=== PATIENT | male | born 1950 | race Caucasian/White ===

== ENCOUNTER → 2023-12-30 09:00 | Outpatient (REF) | payer BC, SELFPAY | LOC: DHCBC HW 09:00 | PROVIDERS: ATTENDING PHYSICIAN Internal Medicine Cardiovascular Disease; FAMILY PHYSICIAN Family Medicine | DX: E78.00 Pure hypercholesterolemia, unspecified (principal); I35.0 Nonrheumatic aortic (valve) stenosis | CPT/HCPCS: 93306 ==

== ENCOUNTER → 2024-03-11 12:31 | Outpatient (REF) | payer BC, SELFPAY | LOC: RAD 12:31 | PROVIDERS: ATTENDING PHYSICIAN Internal Medicine Hematology & Oncology; FAMILY PHYSICIAN Family Medicine | DX: I82.411 Acute embolism and thrombosis of right femoral vein (principal); C83.03 Small cell B-cell lymphoma, intra-abdominal lymph nodes | CPT/HCPCS: 71260; 74177; Q9967 ==

== ENCOUNTER → 2024-06-10 06:32 | Day surgery (SDC) | payer BC, SELFPAY | LOC: GI 06:32 | PROVIDERS: ATTENDING PHYSICIAN Specialist | DX: D12.2 Benign neoplasm of ascending colon (principal); D12.3 Benign neoplasm of transverse colon; K52.9 Noninfective gastroenteritis and colitis, unspecified; K63.89 Other specified diseases of intestine; K62.5 Hemorrhage of anus and rectum; Z79.01 Long term (current) use of anticoagulants | CPT/HCPCS: 45385; 45380; 88305 ==

== ENCOUNTER 2024-08-05 21:44 | Inpatient (IN) | payer BC, SELFPAY ==
[2024-08-05 17:32] VITALS: BP 119/80
[2024-08-05 18:09] LABS: Hematocrit 38.9 % (39.0-52.0); Mean Corpuscular Hgb 30.4 pg (27.0-31.0); Mean Corpuscular Volume 84.6 fL (80.0-94.0); Mean Platelet Volume 10.4 fL (7.4-10.4); Platelet Count 177 10^3/uL (130-400); Red Cell Dist. Width 13.6 % (11.5-14.5); White Blood Cell Count 18.1 10^3/uL (4.8-10.8)
[2024-08-05 18:10] LABS: ALT (SGPT) 31 U/L (0-50); AST (SGOT) 34 U/L (17-59); Albumin 4.6 g/dl (3.5-5.0); Alkaline Phosphatase 109 U/L (38-126); Blood Urea Nitrogen 49 mg/dl (9-20); Carbon Dioxide 32 mmol/L (22-30); Chloride 99 mmol/L (98-107); Glucose 153 mg/dl (70-99); Potassium 3.7 mmol/L (3.5-5.1); Sodium 141 mmol/L (135-145); Total Bilirubin 1.1 mg/dl (0.2-1.3); Total Protein 7.2 g/dl (6.3-8.2); eGFR 48.25
[2024-08-05 18:17] LABS: % Basophils 0.2 % (0-2); % Eosinophils 0.1 % (0-6); % Immature Granulocytes 0.2 % (0-0.5); % Lymphocytes 66.1 % (20.5-51.1); % Monocytes 11.8 % (1.7-9.3); % Neutrophils 21.6 % (42.2-75.2); Absolute Monocytes 2.1 10^3/uL (0.1-0.6); Absolute Neutrophils 3.9 10^3/uL (1.4-6.5); Nucleated Red Blood Cells % 0.1 % (-)
[2024-08-05 18:32] LABS: Calcium 17.2 mg/dl (8.4-10.2)
[2024-08-05 18:46] VITALS: BP 136/71; BMI 28.3
[2024-08-05 19:11] VITALS: BP 132/95
[2024-08-05] MEDS: NSS 1000 IV ×2 (19:21→19:47)
[2024-08-05] MEDS: ZOFRAN 4 MG IV (19:48)
[2024-08-05] MEDS: MORPHINE SULFATE 4 MG IV (19:48)
[2024-08-05 20:00] VITALS: BP 147/86
[2024-08-05] MEDS: AREDIA 260 MG IV (20:03)
--- NOTE | 2024-08-05 20:30 | ED.GENMED ---
History of Present Illness
General
Chief Complaint: Back Pain
Source: patient and family
Exam Limitations: none
Time Seen by Provider: 08/05/24 18:58
History of Present Illness
History of Present Illness:
73-year-old male who presents with generalized weakness and pains. The patient admits that about 2 weeks ago he injured his back while trying to move furniture in his office. Patient states that he has had back pain in the past but this has
persisted. Patient does have a history of DVT as well as coronary disease. Patient has a history of CLL and SLL. Patient states that is being followed by hematology but no treatment has been necessary. He does admit he has felt like he has been
able to feel some lymph nodes up near his ear.
Past History
Past History
ED Past Medical History: HTN, Hypercholesterolemia and Other (History of back pain, neck pain, tingling of the extremities arthritis, factor V Leiden heterozygote, CLL/SLL)
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
Social History
Personal:
Living: with family
Employment: Employed
Phy Exam
Physical Exam
Physical Exam:
CONSTITUTIONAL Patient alert and oriented to person, place and time. Well-appearing. Vital signs reviewed. Dry mucous membranes
HEAD atraumatic, normocephalic.
EYES eyelids normal to inspection, Extraocular muscles intact, Conjunctiva normal, Sclera normal.
NECK normal range of motion, Trachea midline, no jugular venous distention. Mild anterior and posterior cervical chain lymphadenopathy
RESPIRATORY CHEST No respiratory distress noted, Chest expansion equal, Bilateral breath sounds clear.
CARDIOVASCULAR regular rate and rhythm, Heart sounds normal.
ABDOMEN abdomen nontender, Bowel sounds normal. No distention.
BACK normal inspection, no obvious deformities
UPPER EXTREMITY range of motion normal, Motor strength normal, no cyanosis, no edema.
LOWER EXTREMITY range of motion normal, Motor strength normal, no cyanosis, no edema.
NEURO Speech normal, No focal motor deficits, Dawson coma scale 15, Memory normal, Cranial Nerves intact to screening exam.
SKIN skin warm, dry, and normal in color.
PSYCHIATRIC patient oriented to person place and time, Normal affect.
Course
Orders/Labs/Results
Orders:
Orders
08/05/24 17:48
CMP [Comprehensive Metabolic Panel] Urgent
Complete Blood Count/With Diff Urgent
08/05/24 18:50
EKG [Electrocardiogram (*1)] Urgent
Reason for Study: Other
Other Reason for Exam: hypercalcemia
0.9% Sodium Chloride 1000 ml [Nss] 1,000 ml IV BOLUS
08/05/24 18:51
EKG- Treatment ONCE
08/05/24 19:07
Pamidronate Disodium [Aredia] 30 mg 0.9% Sodium Chloride 250 ml [Nss] 250 ml IV NOW
08/05/24 19:36
Chest/Abd/Pelvis wo Contrast CT [CT Chest/abd/pel Wo Iv Cont] Urgent
Comment:
Reason For Exam: hypercalcemia, weakness, back and R flank pain
08/05/24 19:37
0.9% Sodium Chloride 1000 ml [Nss] 1,000 ml IV BOLUS
Morphine Sulfate 4 mg IV NOW STA
Ondansetron Injectable [Zofran] 4 mg IV NOW STA
08/05/24 20:00
Pamidronate Disodium [Aredia] 30 mg 0.9% Sodium Chloride 250 ml [Nss] 250 ml IV ONCE
Abnormal Lab Results
08/05/24
17:48
WBC 18.1 H 10^3/uL
(4.8-10.8)
RBC 4.60 L 10^6/uL
(4.70-6.10)
Hct 38.9 L %
(39.0-52.0)
Absolute Lymphs (auto) 12.0 H 10^3/uL
(1.2-3.4)
Absolute Monos (auto) 2.1 H 10^3/uL
(0.1-0.6)
Neutrophils % 21.6 L %
(42.2-75.2)
Lymphocytes % 66.1 H %
(20.5-51.1)
Monocytes % 11.8 H %
(1.7-9.3)
Carbon Dioxide 32 H mmol/L
(22-30)
BUN 49 H mg/dl
(9-20)
Creatinine 1.5 H mg/dL
(0.7-1.3)
Glucose 153 H mg/dl
(70-99)
Calcium 17.2 H* mg/dl
(8.4-10.2)
08/05/24 17:48
08/05/24 17:48
Vital Signs
Initial and Last Documented VS:
Initial Vital Signs
Temp Pulse Resp BP Pulse Ox
97.9 F 110 20 119/80 96
08/05/24 17:32 08/05/24 17:32 08/05/24 17:32 08/05/24 17:32 08/05/24 17:32
Last Documented Vital Signs
Temp Pulse Resp BP Pulse Ox
98.5 F 86 16 136/71 99
08/05/24 18:46 08/05/24 18:46 08/05/24 18:46 08/05/24 18:46 08/05/24 18:46
MDM/Problems Addressed
MDM/Problems Addressed:
Hypercalcemia, CLL
*Radiology
Radiology exam reviewed: preliminary read by ED provider (No free air)
*Pulse Oximetry
Patient hypoxic: no
*EKG
Interpreted by ED Provider?: Yes
Interpretation: abnormal
Rate: normal
Rhythm: sinus
[place]: normal axis
QRS Pattern: poor R-wave progression
Ischemia: non-specific ST changes
*Unified Communications Architect Interpretation
Rate: normal
Interpretation: normal
Rhythm: sinus
*Critical Care Note
Total Time (30-74mins, 75-104mins- exclusive of procedures): 30 minutes
Data Reviewed
Review of Other/Old Records Reveals: Labs (Prior labs revealed normal) and Discharge Summary
Prescriptions/Medications Considered But Not Given:
Consider Lasix in addition but for now because he is dry continue IV fluids and pamidronate
Patient Management
Discussion with other providers: Hospitalist
Escalation/DeEscalation of care consider admission/obs:
73-year-old male who presents with weakness and fatigue and found to be hypercalcemic. Will need further workup. Continue IV fluids and pamidronate and admit. Dr. Osman was able to discuss the case with nephrology as well
ED Attending Note
-
Portions of this chart may have been created with voice recognition software.� Occasional wrong word or��sound alike� substitutions may have occurred due to the inherent limitations of voice recognition software.
Discharge Plan
Departure
Patient Disposition: Admit
Date of Disposition: 08/05/24
Time of Disposition: 20:31
Admit to: Med/Surg
Presentation/result/management discussed w/ accepting MD/DO: Hospitalist
Discharge Problem:
Hypercalcemia
Prescriptions:
No Action
nicotine (polacrilex) 2 MG gum
2 mg PO .25-30X DAILY PRN (Reason: smoking cessation)
finasteride [Proscar] 5 MG tablet
5 mg PO DAILY
atorvastatin 80 mg Tablet
80 mg PO DAILY
metoprolol succinate [Toprol XL] 100 mg Tablet Extended Release 24 Hr
100 mg PO HS
amlodipine 2.5 mg Tablet
2.5 mg PO DAILY
valsartan [Diovan] 320 mg Tablet
320 mg PO DAILY
diazepam [Valium] 5 mg Tablet
5 mg PO BIDPRN PRN (Reason: anxiety)
Patient Comments:
08/05/24: last filled on 04/14/24 for 60 tablets over 30 days
Eliquis 5 mg Tablet
5 mg PO BID
acetaminophen [Tylenol Extra Strength] 500 mg Tablet
1,000 mg PO Q8HPRN PRN (Reason: mild pain)
aspirin 81 mg Tablet,Chewable
81 mg PO DAILY
Interventions
Interventions:
*Risk Screen - Suicide Last Done: 08/05/24 18:46
*General Assessment Last Done: 08/05/24 18:46
*Neglect/Abuse Screening Last Done: 08/05/24 18:46
ED- Fall Risk Assessment Last Done: 08/05/24 18:46
*ED COVID-19 Vaccine History Last Done: 08/05/24 18:46
ED-Musculoskeletal Assessment Last Done: 08/05/24 18:46
Discharge Date and Time
Print Language: ANGUILLAN
--- NOTE | 2024-08-05 21:17 | HPS.HSE ---
Family Physician
-
Family Physician: William Betts
Chief Complaint
-
back pain
History of Present Illness
73-year-old male past medical history of CLL/SLL, CAD status post CABG, hypertension, hypercholesteremia, factor V Leiden mutation heterozygote, mitral valve prolapse, BPH status post TURP presenting with lower back pain after an injury while
lifting a heavy object on July 20. Pain was located in the lower back across the lower back rating down the legs somewhat worse on the right side. Around the same time he noticed that he had urinary urgency with incontinence if he could not get
to the bathroom in time. He did not have this symptom before. He is able to walk although he feels weaker.
He has also been having nausea and decreased p.o. intake. He has had constipation. He did have a bowel movement today. He denies any cough or shortness of breath. He denies any fevers or chills. He denies urinary symptoms.
He is not on treatment for CLL. He follows with Dr. Hinojosa.
Medical History
Past Medical History
Past Medical History: Reports Other (CLL/SLL, CAD status post CABG, hypertension, hypercholesteremia, factor V Leiden mutation heterozygote, mitral valve prolapse, BPH status post TURP)
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
Social History
Tobacco: Non-smoker
Alcohol: None
Drug: None
Family History
Family History: Not pertinent
Allergies / Home Medications
Allergies reflects when Allergies were last updated in [facility].
Home Medications with original date entered in [facility]
Allergy/Medication List:
Allergies
Allergy/AdvReac Type Severity Reaction Status Date / Time
adhesive Allergy Intermediate Hives and Verified 08/05/24 17:41
redness
lisinopril Allergy cough Verified 08/05/24 17:41
bee stings Allergy Anaphylaxis Uncoded 08/05/24 17:41
Home Medications
finasteride 5 mg tablet (Proscar) 5 mg PO DAILY 01/28/11
nicotine (polacrilex) 2 mg gum 2 mg PO .25-30X DAILY PRN smoking cessation 01/28/11
amlodipine 2.5 mg tablet 2.5 mg PO DAILY 07/10/23
atorvastatin 80 mg tablet 80 mg PO DAILY 07/10/23
diazepam 5 mg tablet (Valium) 5 mg PO BIDPRN PRN anxiety 07/10/23
metoprolol succinate 100 mg tablet,extended release 24 hr (Toprol XL) 100 mg PO HS 07/10/23
valsartan 320 mg tablet (Diovan) 320 mg PO DAILY 07/10/23
apixaban 5 mg tablet (Eliquis) 5 mg PO BID 09/02/23
acetaminophen 500 mg tablet (Tylenol Extra Strength) 1,000 mg PO Q8HPRN PRN mild pain 08/05/24
aspirin 81 mg chewable tablet 81 mg PO DAILY 08/05/24
Review of Systems
-
History Source: Patient
A 12 point ROS was completed and negative except as noted: Yes
Constitutional: Reports No Symptoms
EENT: Reports No Symptoms
Respiratory: Reports No Symptoms
Cardiac: Reports No Symptoms
Abdomen/GI: Reports No Symptoms
: Reports No Symptoms
Musculoskeletal: Reports No Symptoms
Skin: Reports No Symptoms
Neurological: Reports No Symptoms
Endocrine: Reports No Symptoms
Hematologic/Lymphatic: Reports No Symptoms
Psych: Reports No Symptoms
Physical Exam
Vital Signs
Vital Signs
Temp Pulse Resp BP Pulse Ox
98.5 F 86 16 136/71 99
08/05/24 18:46 08/05/24 18:46 08/05/24 18:46 08/05/24 18:46 08/05/24 18:46
Physical Exam
General: Well Developed, Well Nourished and No Apparent Distress
HEENT: NormoCephalic, Moist mucous membranes and Atraumatic
Respiratory: Clear
Cardiac: S1/S2 and Regular Rhythm; No Murmur or Rub
GI: Soft, Non Tender, Non Distended and Normal Bowel Sounds; No Organomegaly
Rectal: Deferred by Provider
Musculoskeletal: No Clubbing, No Cyanosis and No Edema
Skin: No Rash
Neuro: Nonfocal/grossly intact
Laboratory Results
-
08/05/24 17:48
08/05/24 17:48
Laboratory Results
Total Bilirubin 1.1 mg/dl (0.2-1.3) 08/05/24 17:48
AST 34 U/L (17-59) 08/05/24 17:48
ALT 31 U/L (0-50) 08/05/24 17:48
Alkaline Phosphatase 109 U/L (38-126) 08/05/24 17:48
Data Reviewed
-
Lab Data: Labs Reviewed by me
Old Records: Reviewed
Impression/Plan
-
IMPRESSION:
PLAN:
# Acute lower back pain associated with urinary incontinence possibly secondary to hypercalcemia versus spinal cord compression
# History of lumbar spinal stenosis/arthritis
-CT chest abdomen pelvis without cause for back/flank pain
-Check MRI lumbar spine
# Severe hypercalcemia secondary to CLL/SLL
# Constipation/nausea secondary to hypercalcemia
-Pamidronate given
-IV fluids
-Nephrology consulted
# Acute kidney injury
-IV fluids
-Hold valsartan
CLL/SLL
-CT abdomen pelvis shows progressive adenopathy in the chest/abdomen/pelvis
-Oncology consulted
CAD status post CABG
-Continue aspirin
History of right common femoral vein DVT
Factor V Leyden mutation heterozygote
-Continue Eliquis
Essential hypertension
-Continue amlodipine
-Continue with Toprol
-Hold valsartan
Hypercholesterolemia
-Continue statin
Mitral valve prolapse
BPH status post TURP
-Continue finasteride
Anxiety
-Continue Valium
Former smoker
-Continue nicotine gum
Full code
DVT prophylaxis�eliquis
Regular diet
[2024-08-06] VITALS (7 sets, daily range): BP systolic 115–163; BP diastolic 69–91; BMI 27.0
--- NOTE | 2024-08-06 00:30 | PTCARENOTE ---
Pt arrived to unit from ED and was a pullover assist from stretcher into bed. Pt reports 3/10 right flank pain but denies the need for pain medicine at this time. Pt oriented to room, call ybarra within reach, VS stable on admission.
[2024-08-06] MEDS: NSS 1000 IV ×4 (01:02→20:18)
[2024-08-06 07:34] LABS: Glucose - Point of Care 98 mg/dl (70-99)
[2024-08-06 07:57] LABS: Hematocrit 34.4 % (39.0-52.0); Hemoglobin 12.2 g/dL (13.0-18.0); Mean Corp Hgb Conc. 35.5 g/dL (33.0-37.0); Mean Corpuscular Hgb 30.6 pg (27.0-31.0); Mean Corpuscular Volume 86.2 fL (80.0-94.0); Mean Platelet Volume 10.2 fL (7.4-10.4); Platelet Count 120 10^3/uL (130-400); Red Blood Cell Count 3.99 10^6/uL (4.70-6.10); Red Cell Dist. Width 13.6 % (11.5-14.5); White Blood Cell Count 11.7 10^3/uL (4.8-10.8)
[2024-08-06] MEDS: LOW STRENGTH ASPIRIN 81 MG PO (08:12)
[2024-08-06] MEDS: NORVASC 2.5 MG PO (08:12)
[2024-08-06] MEDS: LIPITOR 80 MG PO (08:13)
[2024-08-06] MEDS: PROSCAR 5 MG PO (08:13)
[2024-08-06] MEDS: ELIQUIS 5 MG PO ×2 (08:13→20:18)
[2024-08-06 08:58] LABS: ALT (SGPT) 25 U/L (0-50); AST (SGOT) 27 U/L (17-59); Albumin 3.6 g/dl (3.5-5.0); Alkaline Phosphatase 97 U/L (38-126); Blood Urea Nitrogen 49 mg/dl (9-20); Carbon Dioxide 31 mmol/L (22-30); Chloride 104 mmol/L (98-107); Estimated Creatinine Clearance 49 ml/min; Glucose 96 mg/dl (70-99); Potassium 3.4 mmol/L (3.5-5.1); Sodium 147 mmol/L (135-145); Total Bilirubin 0.7 mg/dl (0.2-1.3); eGFR 52.41
[2024-08-06 09:10] LABS: Calcium 15.2 mg/dl (8.4-10.2)
--- NOTE | 2024-08-06 09:32 | W.CON.NEPH ---
Consultation
-
Date/Time Consultation Requested: 08/06/2024 9:30 AM
Date/Time Consultation Performed: 08/06/2024 9:30 AM
Requesting Provider: Dr. Smith
Performing Provider: Dr. Sprague
Reason for Consultation: Acute kidney injury/hypercalcemia
Medical History
-
Chief Complaint: ALIS/Hypercalcemia
History of Present Illness:
The patient is a 73-year-old male with a past medical history of hypertension maintained on amlodipine, valsartan and metoprolol. He has a history of DVT anticoagulated with Eliquis. He has a history of CLL as well ( and not currently on
treatement). He has a prior history of coronary artery disease and has undergone previous CABG. the patient is chronically anticoagulated also for factor V Leiden mutation. He presented to the hospital with lower back pain yesterday. The patient
admits to having ongoing nausea and decreased p.o. intake. He was also constipated. On presentation to the hospital he was in acute kidney injury with a creatinine of up to 1.5 and hypercalcemia with a serum calcium level of 17.2.
Past Medical History
(CLL/SLL, CAD status post CABG, hypertension, hypercholesteremia, factor V Leiden mutation heterozygote, mitral valve prolapse, BPH status post TURP)
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
Social History
Tobacco: Former Smoker
Alcohol: None
Family History
no ckd
Allergies / Home Medications
Allergy/AdvReac Type Severity Reaction Status Date / Time
adhesive Allergy Hives and Verified 08/05/24 23:37
redness
lisinopril Allergy cough Verified 08/05/24 17:41
venom-honey bee Allergy BEE Verified 08/05/24 23:37
STINGS-ANAPHYLAXIS
�Medication �Instructions �Recorded �Confirmed �Type
finasteride 5 mg tablet (Proscar) 5 mg PO DAILY Urinary Issue 01/28/11 08/05/24 History
nicotine (polacrilex) 2 mg gum 2 mg PO .25-30X DAILY PRN smoking 01/28/11 08/05/24 History
cessation
amlodipine 2.5 mg tablet 2.5 mg PO DAILY Blood Pressure 07/10/23 08/05/24 History
atorvastatin 80 mg tablet 80 mg PO DAILY High Cholesterol 07/10/23 08/05/24 History
diazepam 5 mg tablet (Valium) 5 mg PO BIDPRN PRN anxiety 07/10/23 08/05/24 History
metoprolol succinate 100 mg 100 mg PO HS Heart 07/10/23 08/05/24 History
tablet,extended release 24 hr Disease/Condition
(Toprol XL)
valsartan 320 mg tablet (Diovan) 320 mg PO DAILY Blood Pressure 07/10/23 08/05/24 History
apixaban 5 mg tablet (Eliquis) 5 mg PO BID Blood Clot 09/02/23 08/05/24 History
Prevention/Tx
acetaminophen 500 mg tablet 1,000 mg PO Q8HPRN PRN mild pain 08/05/24 08/05/24 History
(Tylenol Extra Strength)
aspirin 81 mg chewable tablet 81 mg PO DAILY Blood Clot 08/05/24 08/05/24 History
Prevention/Tx
Review of Systems
-
History Source: Patient
All other systems: Negative unless noted
Constitutional: Weight Loss and Fatigue
EENT: No Symptoms
Respiratory: No Symptoms
Cardiac: No Symptoms
Abdomen/GI: Nausea, Vomiting, Constipated and Anorexia
: Urgency (Passes urine every 30 minutes)
Musculoskeletal: Other (Lower back pain)
Skin: No Symptoms
Neurological: No Symptoms
Endocrine: No Symptoms
Hematologic/Lymphatic: No Symptoms
Physical Exam
Vital Signs
Vital Signs
Temp Pulse Resp BP Pulse Ox
98.4 F 72 17 163/81 97
08/06/24 07:05 08/06/24 08:12 08/06/24 07:05 08/06/24 08:12 08/06/24 07:05
Lab Results
08/06/24 07:15
08/06/24 07:15
WBC 11.7 10^3/uL (4.8-10.8) H 08/06/24 07:15
RBC 3.99 10^6/uL (4.70-6.10) L 08/06/24 07:15
Hgb 12.2 g/dL (13.0-18.0) L 08/06/24 07:15
Hct 34.4 % (39.0-52.0) L 08/06/24 07:15
Plt Count 120 10^3/uL (130-400) L D 08/06/24 07:15
Sodium 147 mmol/L (135-145) H 08/06/24 07:15
Potassium 3.4 mmol/L (3.5-5.1) L 08/06/24 07:15
Chloride 104 mmol/L (98-107) 08/06/24 07:15
Carbon Dioxide 31 mmol/L (22-30) H 08/06/24 07:15
BUN 49 mg/dl (9-20) H 08/06/24 07:15
Creatinine 1.4 mg/dL (0.7-1.3) H 08/06/24 07:15
eGFR 52.41 08/06/24 07:15
Glucose 96 mg/dl (70-99) 08/06/24 07:15
Calcium 15.2 mg/dl (8.4-10.2) H* 08/06/24 07:15
Albumin 3.6 g/dl (3.5-5.0) 08/06/24 07:15
Physical Exam
General: AOx3, Nontoxic , NAD
HEENT: PERRL, EOMI, Anicteric, Conjunctivae Clear, Ear/Nose Intact, Hearing Normal, Oropharynx Clear/Moist, Dentition Intact, Facial Symmetry, Neck Supple, Neck: Trachea Midline, No JVD and No Thyromegaly, no Bruits
Respiratory: Clear to auscultation bilaterally with normal lung exersion
Cardiac: S1/S2 and Regular Rate/Rhythm
Breast: Deferred by me
Abdomen: Soft, Nontender, Nondistended, Normal Bowel Sounds and No Hepatosplenomegaly
Rectal: Deferred by Provider
Genito-urinary: No Costovertebral Tenderness
Extremities: No Clubbing, No Cyanosis and No Edema
Skin: No Rash or open lesions
Neuro: Nonfocal/Grossly Intact, CN II-XII (Intact) and Strength (Musculoskeletal exam 5 out of 5 both upper and lower extremities)
Hematologic/Lymphatic: No Cervical Lymphadenopathy, No Submandibular Lymphadenopathy and No Supraclavicular Lymphadenopathy
Psych: Mood/afflect pleasant, Insight/judgement good and Appropriate
Vascular: plus 2 pedal and radial pulses
Data Reviewed
-
CT Scan: Report Reviewed by me (No obstructive uropathy: Progressive adenopathy chest abdomen and pelvis)
Labs: Labs Reviewed by me (BMP CBC)
Old Records: Reviewed (Creatinine 0.8 from August 2023)
Assessment/Plan
-
Impression:
Back pain
Hypercalcemia (17.2)
Acute kidney 1.5
CLL\\SLL (progressive adenopathy by CT chest abdomen and pelvis)
History of right common femoral DVT
Hypertension
Mitral valve prolapse
BPH status post TURP
Coronary artery disease with history of CABG
Plan:
Hypercalcemia:
-Status post pamidronate provide
-Continue IV fluids
-Obtain vitamin D levels, intact PTH SPEP LDH
-Suspect hypercalcemia is a function of advancing malignancy
Acute kidney injury:
-Likely precipitated by prerenal stimulus due to profound hypercalcemia
-Obtain urinalysis urine sodium and urine creatinine
-IV fluids provided
-Bladder scans to ensure no obstructive component
[2024-08-06 09:52] LABS: % Basophils 0.4 % (0-2); % Eosinophils 1.4 % (0-6); % Immature Granulocytes 0.2 % (0-0.5); % Lymphocytes 62.6 % (20.5-51.1); % Monocytes 12.7 % (1.7-9.3); % Neutrophils 22.7 % (42.2-75.2); Absolute Basophils 0.1 10^3/uL (0-0.2); Absolute Eosinophils 0.2 10^3/uL (0-0.7); Absolute Lymphocytes 7.3 10^3/uL (1.2-3.4); Absolute Monocytes 1.5 10^3/uL (0.1-0.6); Absolute Neutrophils 2.7 10^3/uL (1.4-6.5); Nucleated Red Blood Cells % 0.3 % (-)
--- NOTE | 2024-08-06 10:07 | CON.ONC ---
Documented by User: Leigh Kirkland DO, Resident 08/06/24 11:46
Impression
Impression
73-year-old male, with past medical history of CLL/SLL with increased lymphadenopathy.
Plan
Plan
follow up OP with Dr. Hinojosa. Currently blood work stable
His increased Lymphadenopathy could be related to recent COVID
Will check IG to see if pt can benefit from IVIG infusions
Patient History
History of Present Illness
73-year-old male, with past medical history of CLL/SLL, CAD post CABG, MVP, BPH, hypertension, factor V Leiden mutation and unprovoked DVTs currently on Eliquis, who presented to [facility] with lower back pain after lifting a heavy object.
On 08/05, CT abdomen pelvis showed progressive adenopathy in the chest abdomen and pelvis. Patient is due to be seen in our office for restaging in 2024.
On conversation today, patient reports that he has had 2 recent cases of COVID, 3 weeks apart. He had significant weakness, nausea, night sweats during that time. He states he has noticed increased lymphadenopathy in his neck and has had 10 pounds
weight loss over the last 2 months.
Past-Medical/Surgical History
Past Medical History: Reports Other (CLL/SLL, CAD status post CABG, hypertension, hypercholesteremia, factor V Leiden mutation heterozygote, mitral valve prolapse, BPH status post TURP)
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
Patient Medication
�Medication �Instructions �Recorded �Confirmed �Last Taken �Type
finasteride 5 mg tablet (Proscar) 5 mg PO DAILY Urinary Issue 01/28/11 08/05/24 08/05/24 History
nicotine (polacrilex) 2 mg gum 2 mg PO .25-30X DAILY PRN smoking 01/28/11 08/05/24 07/09/23 08:00 History
cessation
amlodipine 2.5 mg tablet 2.5 mg PO DAILY Blood Pressure 07/10/23 08/05/24 08/05/24 History
atorvastatin 80 mg tablet 80 mg PO DAILY High Cholesterol 07/10/23 08/05/24 08/05/24 History
diazepam 5 mg tablet (Valium) 5 mg PO BIDPRN PRN anxiety 07/10/23 08/05/24 07/09/23 06:30 History
metoprolol succinate 100 mg 100 mg PO HS Heart 07/10/23 08/05/24 08/04/24 History
tablet,extended release 24 hr Disease/Condition
(Toprol XL)
valsartan 320 mg tablet (Diovan) 320 mg PO DAILY Blood Pressure 07/10/23 08/05/24 08/05/24 History
apixaban 5 mg tablet (Eliquis) 5 mg PO BID Blood Clot 09/02/23 08/05/24 08/05/24 History
Prevention/Tx
acetaminophen 500 mg tablet 1,000 mg PO Q8HPRN PRN mild pain 08/05/24 08/05/24 08/05/24 History
(Tylenol Extra Strength)
aspirin 81 mg chewable tablet 81 mg PO DAILY Blood Clot 08/05/24 08/05/24 08/05/24 History
Prevention/Tx
Active Medications
Generic Name Dose Route Start Last Admin
Trade Name Freq PRN Reason Stop Dose Admin
Acetaminophen 1,000 mg 08/05/24 23:47
Acetaminophen 500 Mg Tablet PO 09/02/24 23:46
Q8HPRN PRN
mild pain
Amlodipine Besylate 2.5 mg 08/06/24 08:00 08/06/24 08:12
Amlodipine 2.5 Mg Tablet PO 09/03/24 07:59 2.5 mg
DAILY FLEX Administration
Apixaban 5 mg 08/06/24 08:00 08/06/24 08:13
Apixaban (Eliquis) 5 Mg Tablet PO 09/03/24 07:59 5 mg
BID FLEX Administration
Aspirin 81 mg 08/06/24 08:00 08/06/24 08:12
Aspirin 81 Mg Chewable Tablet PO 09/03/24 07:59 81 mg
DAILY FLEX Administration
Atorvastatin Calcium 80 mg 08/06/24 08:00 08/06/24 08:13
Atorvastatin (Lipitor) 80 Mg Tablet PO 09/03/24 07:59 80 mg
DAILY FLEX Administration
Diazepam 5 mg 08/05/24 23:47
Diazepam 5 Mg Tablet PO 09/02/24 23:46
BIDPRN PRN
anxiety
Finasteride 5 mg 08/06/24 08:00 08/06/24 08:13
Finasteride 5 Mg Tablet PO 09/03/24 07:59 5 mg
DAILY FLEX Administration
Sodium Chloride 1,000 mls @ 130 mls/hr 08/05/24 23:47 08/06/24 08:11
Nss IV 1,000 mls
.Q7H42M FLEX Administration
Metoprolol Succinate 100 mg 08/26/24 00:13
Metoprolol 100 Mg Extended Release Tablet PO 09/23/24 00:12
HS FLEX
Nicotine Polacrilex 2 mg 08/05/24 23:47
Nicotine 2 Mg Chewing Gum PO 09/02/24 23:46
.25-30X DAILY PRN
smoking cessation
Sodium Chloride 0 flush 08/05/24 23:00
Sodium Chloride 0.9% (Flush) Syringe IV 09/02/24 22:59
PER PROTOCOL FLEX
Review of Systems
-
History Source: Patient
Constitutional: Reports Weight Loss
Respiratory: Reports No Symptoms and Other (on 2L NC)
Cardiac: Reports No Symptoms
GI: Reports No Symptoms
: Reports Frequency
Musculoskeletal: Reports Muscle Pain
Psych: Reports No Symptoms
Physical Exam
-
General: Well Developed, Well Nourished, No Apparent Distress, Comfortable and Conversant
GI: Soft
Musculoskeletal: No Clubbing, No Cyanosis and No Edema
Skin: Warm and Dry
Psych: Calm
Labs
Lab Results
WBC 11.7 10^3/uL (4.8-10.8) H 08/06/24 07:15
RBC 3.99 10^6/uL (4.70-6.10) L 08/06/24 07:15
Hgb 12.2 g/dL (13.0-18.0) L 08/06/24 07:15
Hct 34.4 % (39.0-52.0) L 08/06/24 07:15
MCV 86.2 fL (80.0-94.0) 08/06/24 07:15
MCH 30.6 pg (27.0-31.0) 08/06/24 07:15
MCHC 35.5 g/dL (33.0-37.0) 08/06/24 07:15
RDW 13.6 % (11.5-14.5) 08/06/24 07:15
Plt Count 120 10^3/uL (130-400) L D 08/06/24 07:15
MPV 10.2 fL (7.4-10.4) 08/06/24 07:15
Abs Immat Gran (auto) 0.0 10^3/uL (0-0.05) 08/06/24 07:15
Absolute Neuts (auto) 2.7 10^3/uL (1.4-6.5) 08/06/24 07:15
Absolute Lymphs (auto) 7.3 10^3/uL (1.2-3.4) H 08/06/24 07:15
Absolute Monos (auto) 1.5 10^3/uL (0.1-0.6) H 08/06/24 07:15
Absolute Eos (auto) 0.2 10^3/uL (0-0.7) 08/06/24 07:15
Absolute Basos (auto) 0.1 10^3/uL (0-0.2) 08/06/24 07:15
Immature Gran % 0.2 % (0-0.5) 08/06/24 07:15
Neutrophils % 22.7 % (42.2-75.2) L 08/06/24 07:15
Lymphocytes % 62.6 % (20.5-51.1) H 08/06/24 07:15
Monocytes % 12.7 % (1.7-9.3) H 08/06/24 07:15
Eosinophils % 1.4 % (0-6) 08/06/24 07:15
Basophils % 0.4 % (0-2) 08/06/24 07:15
Creatinine 1.4 mg/dL (0.7-1.3) H 08/06/24 07:15
Vital Signs
Vital Signs
Temp Pulse Resp BP Pulse Ox
98.4 F 72 17 163/81 97
08/06/24 07:05 08/06/24 08:12 08/06/24 07:05 08/06/24 08:12 08/06/24 07:05

Documented by User: Ponce Ramos MD 08/06/24 13:25
Plan
Plan
follow up OP with Dr. Hinojosa. Currently blood work stable
now w/ increased Lymphadenopathy - hypercalcemia/ ARF
Hematology Addendum:
Patient seen and evaluated and agree w/ medical manager note as outlined
1. h/o SLL/CLL - followed by Dr. Hinojosa
-lymphadenopathy at baseline on diagnosis - 2022 - now increased on CT imaging this hospitalization
-consider repeat PET/CT imaging as outpt - prior PET in fall of 2022 w/ low level FDG uptake
-if f/u PET/CT demonstrates increased uptake - could consider repeat lymph node biopsy
-CBC is relatively stable
2. hypercalcemia/ ARF -
-nephrology following - unclear etiology - CLL? paraproteinemia?
-check uric acid / LDH / SPEP w/ immunofixation and serum free light chain analysis/ QIGs
-received bisphosphonate/ IVF
Will continue to follow with you.
--- NOTE | 2024-08-06 11:23 | W.PN.HOSP.TC ---
Today's Communication/Plan
-
IV fluids.
Follow calcium level.
MRI of the lumbar spine
Oncology consultation
Assessment / Plan
Assessment / Plan
Impression:
Presentation with severe low back pain, generalized fatigue, weakness and low oral intake.
Severe, likely malignant hypercalcemia
Diffuse lymphadenopathy
ALIS.
Conditions prior to admission:
CLL/SLL under surveillance.
CAD status post stenting, status post CABG.
Essential hypertension.
Factor V Leyden mutation/heterozygote on anticoagulation with Eliquis.
Dyslipidemia.
Moderate aortic stenosis/mitral valve prolapse.
BPH.
Tobacco use disorder
Anxiety.
Plan:
Severe hypercalcemia suspected secondary to malignancy
Status post pamidronate
Additional workup pending vitamin D levels, PTH, SPEP, LDH.
History of CLL under surveillance with CT scan at admission with diffuse lymphadenopathy.
Lower back pain with no focal neurologic findings on exam, pending MRI.
Acute kidney injury secondary to prerenal stimuli, angiotensin receptor colleen, hypercalcemia
Morgan urinalysis.
Bladder scan for retention.
Continue IV fluids.
Hold valsartan
Nephrology input appreciated.
CAD status post CABG, status post tenting most recent intervention 07/23.
Continue aspirin, statin, beta-colleen
Factor V Leyden heterozygote
Continue Eliquis
Anticipated Discharge: > 48 hours
Subjective/Interval History
-
Date of Service: August 06, 2024
Objective Data
-
Labs:
Laboratory Results
08/06/24
07:15
WBC 11.7 H
Hgb 12.2 L
Hct 34.4 L
Plt Count 120 L D
Sodium 147 H
Potassium 3.4 L
Chloride 104
Carbon Dioxide 31 H
BUN 49 H
Creatinine 1.4 H
Glucose 96
Calcium 15.2 H*
Total Bilirubin 0.7
AST 27
ALT 25
Alkaline Phosphatase 97
Vital Signs:
Vital Signs
Temp Pulse Resp BP Pulse Ox
98.4 F 72 17 163/81 97
08/06/24 07:05 08/06/24 08:12 08/06/24 07:05 08/06/24 08:12 08/06/24 07:05
I&O
08/05/24 08/06/24 08/07/24
06:59 06:59 06:59
Intake Total 175 / 175
Output Total 400 / 400
Balance -225 / -225
Physical Exam
-
General: Well Developed and No Apparent Distress
HEENT: Normocephalic, Atraumatic and Moist Mucous Membranes
Respiratory: Clear to Auscultation
Cardiac: Regular Rhythm and S1/S2; Negative Murmur, Rub or Gallop
GI: Soft, Nontender, Nondistended and Normal Bowel Sounds; Negative Organomegaly
Rectal: Deferred by Provider
Musculoskeletal: No Clubbing, No Cyanosis and No Edema
Skin: Negative Rash
Neuro: Nonfocal/Grossly Intact
[2024-08-06 11:42] LABS: Vitamin D, 25-OH*** 23.4 ng/mL (30-80)
--- NOTE | 2024-08-06 23:50 | PTCARENOTE ---
Pt reports that he takes Toprol XL 100mg HS, which is not ordered. [facility]ana notified and orders placed for 1x toprol 100mg XL stat and scheduled starting tomorrow at 2200 acknowledged. Pt received stat dose of Toprol XL.
[2024-08-06] MEDS: TOPROL XL 100 MG PO (23:51)
[2024-08-07] VITALS (7 sets, daily range): BP systolic 145–179; BP diastolic 80–98
[2024-08-07 04:08] LABS: Urine Albumin Negative (Neg - Trace); Urine Bilirubin Negative (Negative); Urine Character Clear (Clear); Urine Color Yellow; Urine Glucose Negative (Negative); Urine Ketone Negative (Negative); Urine Leukocyte Negative (Negative); Urine Nitrite Negative (Negative); Urine Occult Blood Negative (Negative); Urine Urobilinogen Negative (Neg - 1+)
[2024-08-07 04:18] LABS: Protein/creatinine Ratio 0.2; Urine Protein 20 mg/dl; Urine Sodium 64 mmol/L (30-90)
[2024-08-07 06:57] LABS: Ionized Calcium 1.61 mMOL/L (1.15-1.33)
[2024-08-07] MEDS: NORVASC 2.5 MG PO (08:04)
[2024-08-07] MEDS: LIPITOR 80 MG PO (08:04)
[2024-08-07] MEDS: LOW STRENGTH ASPIRIN 81 MG PO (08:04)
[2024-08-07] MEDS: ELIQUIS 5 MG PO ×2 (08:04→20:07)
[2024-08-07] MEDS: PROSCAR 5 MG PO (08:04)
[2024-08-07] MEDS: NSS 1000 IV ×3 (08:05→23:43)
[2024-08-07 08:47] LABS: Blood Urea Nitrogen 47 mg/dl (9-20); Carbon Dioxide 27 mmol/L (22-30); Chloride 107 mmol/L (98-107); Estimated Creatinine Clearance 57 ml/min; Glucose 92 mg/dl (70-99); LDH 237 U/L (120-246); Phosphorus 2.2 mg/dl (2.5-4.5); Potassium 3.4 mmol/L (3.5-5.1); Sodium 145 mmol/L (135-145); Uric Acid 11.6 mg/dl (3.5-8.5); eGFR > 60.00
[2024-08-07 08:49] LABS: Calcium 13.2 mg/dl (8.4-10.2)
[2024-08-07 09:38] LABS: Intact PTH 11.8 pg/ml (13.6-85.8)
--- NOTE | 2024-08-07 11:57 | W.PN.NEPH.PH ---
Today's Communication / Plan
-
Maintain IV fluids
Check PTH RP
Replete potassium
ALIS improving
Hypercalcemia improving
Assessment/Plan
-
Impression:
Back pain
Hypercalcemia (17.2)
Acute kidney 1.5
CLL\\SLL (progressive adenopathy by CT chest abdomen and pelvis)
History of right common femoral DVT
Hypertension
Mitral valve prolapse
BPH status post TURP
Coronary artery disease with history of CABG
Plan:
Hypercalcemia:
-Calcium down to 13.2
-Uric acid level elevated to 11.6
-Status post pamidronate provide
-Continue IV fluids , add K
-Obtain vitamin D levels, intact PTH SPEP LDH
-PTH was appropriately suppressed at 11.8
-Suspect hypercalcemia is a function of advancing malignancy
-Check PTH RP
Acute kidney injury:
-Likely precipitated by prerenal stimulus due to profound hypercalcemia
-improving to 1.2 , grossly non oliguric at 2625cc
-Obtained urinalysis urine sodium and urine creatinine: UA bland
-IV fluids provided
-Bladder scans to ensure no obstructive component
-
-
Date of Service: August 07, 2024
CC / HPI / ROS
-
Chief Complaint:
ALIS
Hypercalcemia
History of Present Illness:
Blood pressure remains elevated
Serum calcium level down to 13.2
Creatinine down to 1.2
Review of Systems:
Nonoliguric
No chest pain or shortness of breath
Noted persistent low back pain
Labs
-
Labs:
WBC 11.7 10^3/uL (4.8-10.8) H 08/06/24 07:15
RBC 3.99 10^6/uL (4.70-6.10) L 08/06/24 07:15
Hgb 12.2 g/dL (13.0-18.0) L 08/06/24 07:15
Hct 34.4 % (39.0-52.0) L 08/06/24 07:15
Plt Count 120 10^3/uL (130-400) L D 08/06/24 07:15
Sodium 145 mmol/L (135-145) 08/07/24 06:26
Potassium 3.4 mmol/L (3.5-5.1) L 08/07/24 06:26
Chloride 107 mmol/L (98-107) 08/07/24 06:26
Carbon Dioxide 27 mmol/L (22-30) 08/07/24 06:26
BUN 47 mg/dl (9-20) H 08/07/24 06:26
Creatinine 1.2 mg/dL (0.7-1.3) 08/07/24 06:26
eGFR > 60.00 08/07/24 06:26
Glucose 92 mg/dl (70-99) 08/07/24 06:26
Calcium 13.2 mg/dl (8.4-10.2) H* 08/07/24 06:26
Phosphorus 2.2 mg/dl (2.5-4.5) L 08/07/24 06:26
Albumin 3.6 g/dl (3.5-5.0) 08/06/24 07:15
Physical Exam
-
Vital Signs:
Vital Signs
Temp Pulse Resp BP Pulse Ox
97.6 F 70 16 168/88 95
08/07/24 11:03 08/07/24 11:03 08/07/24 11:03 08/07/24 11:03 08/07/24 11:03
Cardiovascular:: Regular rate and rhythm
Respiratory:: Bilateral: CTA
Lung Excursion:: Normal
Abdomen:: Nontender and Soft
Bowel Sounds:: Normal
Extremity Edema:: None: Bilateral:
Perales Catheter: No
--- NOTE | 2024-08-07 12:06 | W.PN.HOSP.TC ---
Today's Communication/Plan
-
see plan
Assessment / Plan
Assessment / Plan
Impression:
Presentation with severe low back pain, generalized fatigue, weakness and low oral intake.
Severe, likely malignant hypercalcemia
Diffuse lymphadenopathy
ALIS.
Conditions prior to admission:
CLL/SLL under surveillance.
CAD status post stenting, status post CABG.
Essential hypertension.
Factor V Leyden mutation/heterozygote on anticoagulation with Eliquis.
Dyslipidemia.
Moderate aortic stenosis/mitral valve prolapse.
BPH.
Tobacco use disorder
Anxiety.
Lumbar Spine MRI
IMPRESSION:
There is an acute compression deformity of the L1 vertebral body with approximately 30% loss of height.
Multilevel degenerative changes of the lumbar spine most pronounced at L4-L5 where there is mild canal stenosis, lateral recess narrowing and severe bilateral neuroforaminal narrowing. Individual characterizations as above.
Known retroperitoneal lymphadenopathy.
Plan:
Severe hypercalcemia suspected secondary to malignancy
History of CLL under surveillance with CT scan at admission with diffuse lymphadenopathy.
Lower back pain with no focal neurologic findings on exam, pending MRI.
-PTH low, awaiting SPEP, PTHrP
-appreciate Oncology and Nephrology
-s/p Pamidronate
-continue IVF
-calcium level decreasing
Acute kidney injury secondary to prerenal stimuli, angiotensin receptor colleen, hypercalcemia
Elliott urinalysis.
Bladder scan for retention.
Continue IV fluids.
Hold valsartan
Nephrology input appreciated.
-renal function improving
CAD status post CABG, status post tenting most recent intervention 07/23.
Continue aspirin, statin, beta-colleen
Factor V Leyden heterozygote
Continue Eliquis
Anticipated Discharge: 24 - 48 hours
Subjective/Interval History
-
Date of Service: August 07, 2024
no new complaints
no shortness of breath
Objective Data
-
Labs:
Laboratory Results
08/07/24
06:26
Sodium 145
Potassium 3.4 L
Chloride 107
Carbon Dioxide 27
BUN 47 H
Creatinine 1.2
Glucose 92
Calcium 13.2 H*
Vital Signs:
Vital Signs
Temp Pulse Resp BP Pulse Ox
97.6 F 70 16 168/88 95
08/07/24 11:03 08/07/24 11:03 08/07/24 11:03 08/07/24 11:03 08/07/24 11:03
I&O
08/06/24 08/07/24 08/08/24
06:59 06:59 06:59
Intake Total 175 / 175 1640 / 1640
Output Total 400 / 400 2625 / 2625
Balance -225 / -225 -985 / -985
Review of Systems
-
History Source: Patient
All other systems: Reviewed and negative
Physical Exam
-
General: Well Developed and No Apparent Distress
HEENT: Normocephalic, Atraumatic and Moist Mucous Membranes
Respiratory: Clear to Auscultation
Cardiac: Regular Rhythm and S1/S2; Negative Murmur, Rub or Gallop
GI: Soft, Nontender, Nondistended and Normal Bowel Sounds; Negative Organomegaly
Rectal: Deferred by Provider
Musculoskeletal: No Clubbing, No Cyanosis and No Edema
Skin: Negative Rash
Neuro: Nonfocal/Grossly Intact
Data Reviewed
-
Diagnostic Radiology: Report Reviewed by me
Labs: Labs Reviewed by me
--- NOTE | 2024-08-07 12:22 | W.PN.ONC2 ---
Today's Communication / Plan
-
- no evidence of TLS however started allopurinol 300 mg daily for high uric acid level.
- continue to monitor calcium, slowly downtrending.
- ongoing eval for PTH independent hypercalcemia pending. will need outpt PET/CT, will arrange.
Impression
Impression
73-year-old male, with past medical history of CLL/SLL with increased lymphadenopathy.
Plan
Plan
1. h/o SLL/CLL - followed by Dr. Hinojosa
-lymphadenopathy at baseline on diagnosis - 2022 - now mildly increased on CT imaging this hospitalization however no focal areas of bulky disease. no evidence of new visceral malignancy on CT C/A/P.
-recommend repeat PET/CT imaging as outpt - prior PET in fall of 2022 w/ low level FDG uptake
-if f/u PET/CT demonstrates increased uptake - could consider repeat lymph node biopsy of that area to assess for transformation.
-CBC with tripling of ALC on admission however suspect element of dehydration. hgb, plts similar to prior and WBC/ALC downtrending.
2. PTH independent hypercalcemia/ ARF -
-nephrology following - unclear etiology - CLL/SLL? paraproteinemia?
- Calcium 17.2 on admission. PTH, vitamin D low. SPEP, FLC, SRIRAM level pending.
-TLS panel not consistent with TLS with normal LDH, low phos, high calcium. suspect uric acid elevation unrelated to hematological process, metabolic syndrome in nature. No confirmed gout flares in past but symptoms he thought may have been.
regardless feel he would benefit from starting allopurinol to lower uric acid level in case tx for lymphoma indicated in future with high value already at baseline. started allopurinol 300 mg daily.
-received bisphosphonate/ IVF. calcium slowly downtrending. If continues to improve and </= 12 range tomorrow ok for discharge with continued outpt monitoring.
Will continue to follow with you.
Subjective/Objective
Chief Complaint
hypercalcemia, back pain
Subjective
he still have decreased appetite, nausea. Denies abdominal pain. Weakness mildly improved. Denies fevers, new bone pain.
Vital Signs:
Vital Signs
Temp Pulse Resp BP Pulse Ox
97.6 F 70 16 168/88 95
08/07/24 11:03 08/07/24 11:03 08/07/24 11:03 08/07/24 11:03 08/07/24 11:03
Lab Results:
Laboratory Data
WBC 11.7 10^3/uL (4.8-10.8) H 08/06/24 07:15
Hgb 12.2 g/dL (13.0-18.0) L 08/06/24 07:15
Plt Count 120 10^3/uL (130-400) L D 08/06/24 07:15
eGFR > 60.00 08/07/24 06:26
Physical Exam
HEENT: Moist Mucous Membranes; No Jaundice
Cardiology: Normal Sinus Rhythm
Pulmonary: Clear
GI: Soft; No Distended
Extremities: No Edema
Neuro: Non Focal
Review of Systems
Review of Systems
Constitutional: Reports Fatigue; Denies Fever
Respiratory: Denies Dyspnea
Cardiovascular: Denies Chest Pain
Gastrointestinal: Reports Nausea/Vomiting; Denies Diarrhea
Skin: Denies Rash
Neurological: Denies Headache
Hem/Lymphatic: Reports Night Sweats and Swollen Glands
Orders
Orders
Orders From Last 24 Hours
08/07/24 12:21
SRIRAM levels [[id number] Enzyme] [S] Routine
[2024-08-07] MEDS: KCL 20 MEQ PO (13:15)
[2024-08-07] MEDS: TOPROL XL 100 MG PO (20:07)
[2024-08-07] MEDS: TRANDATE 5 MG IV (23:43)
[2024-08-08] VITALS (7 sets, daily range): BP systolic 139–174; BP diastolic 75–96; PULSE 72; O2SAT 96
[2024-08-08] MEDS: NSS 1000 IV ×2 (06:19→12:19)
[2024-08-08] MEDS: PROSCAR 5 MG PO (07:44)
[2024-08-08] MEDS: ZYLOPRIM 300 MG PO (07:45)
[2024-08-08] MEDS: LOW STRENGTH ASPIRIN 81 MG PO (07:45)
[2024-08-08] MEDS: ELIQUIS 5 MG PO ×2 (07:45→19:49)
[2024-08-08] MEDS: LIPITOR 80 MG PO (07:45)
[2024-08-08] MEDS: NORVASC 2.5 MG PO (07:45)
[2024-08-08 07:59] LABS: Hematocrit 33.8 % (39.0-52.0); Mean Corp Hgb Conc. 35.5 g/dL (33.0-37.0); Mean Corpuscular Hgb 31.1 pg (27.0-31.0); Mean Corpuscular Volume 87.6 fL (80.0-94.0); Mean Platelet Volume 10.3 fL (7.4-10.4); Platelet Count 115 10^3/uL (130-400); Red Blood Cell Count 3.86 10^6/uL (4.70-6.10); Red Cell Dist. Width 13.6 % (11.5-14.5); White Blood Cell Count 11.6 10^3/uL (4.8-10.8)
[2024-08-08 08:30] LABS: Blood Urea Nitrogen 32 mg/dl (9-20); Calcium 11.6 mg/dl (8.4-10.2); Carbon Dioxide 30 mmol/L (22-30); Chloride 105 mmol/L (98-107); Estimated Creatinine Clearance 62 ml/min; Glucose 93 mg/dl (70-99); Sodium 145 mmol/L (135-145); eGFR > 60.00
--- NOTE | 2024-08-08 10:06 | CM ---
Patient seen bedside.
IA completed.
Lives with spouse in 2 story home with no steps to enter.
patient independent prior to admission without assistive devices.
Patient attended cardiac rehab at , no hx [facility] or skilled rehab.
Patient works.
PT/OT recommending home with home care.
Options reviewed, chose [facility], and daughter in agreement.
No Housing/financial or food insecurities.
PCP: Dr Betts
Pharmacy: [facility]
Plan: home with [facility]
[2024-08-08] MEDS: TYLENOL 1000 MG PO (10:24)
--- NOTE | 2024-08-08 11:40 | W.PN.HOSP.TC ---
Today's Communication/Plan
-
see plan
Assessment / Plan
Assessment / Plan
Impression:
Presentation with severe low back pain, generalized fatigue, weakness and low oral intake.
Severe, likely malignant hypercalcemia
Diffuse lymphadenopathy
ALIS.
Conditions prior to admission:
CLL/SLL under surveillance.
CAD status post stenting, status post CABG.
Essential hypertension.
Factor V Leyden mutation/heterozygote on anticoagulation with Eliquis.
Dyslipidemia.
Moderate aortic stenosis/mitral valve prolapse.
BPH.
Tobacco use disorder
Anxiety.
Lumbar Spine MRI
IMPRESSION:
There is an acute compression deformity of the L1 vertebral body with approximately 30% loss of height.
Multilevel degenerative changes of the lumbar spine most pronounced at L4-L5 where there is mild canal stenosis, lateral recess narrowing and severe bilateral neuroforaminal narrowing. Individual characterizations as above.
Known retroperitoneal lymphadenopathy.
Plan:
Severe hypercalcemia suspected secondary to malignancy
History of CLL under surveillance with CT scan at admission with diffuse lymphadenopathy.
Lower back pain with no focal neurologic findings on exam, pending MRI.
-PTH low, awaiting SPEP, PTHrP
-appreciate Oncology and Nephrology
-s/p Pamidronate
-s/p IVF, Ca down to 11.6 this morning
-patient feels more comfortable with one more night in the hospital - anticipate DC tomorrow with follow up Oncology appt arranged
Acute kidney injury secondary to prerenal stimuli, angiotensin receptor colleen, hypercalcemia
-resolved
-appreciate renal
CAD status post CABG, status post tenting most recent intervention 07/23.
Continue aspirin, statin, beta-colleen
Factor V Leyden heterozygote
Continue Eliquis
Anticipated Discharge: Within 24 hours
Subjective/Interval History
-
Date of Service: August 08, 2024
feeling well today
got up and walked with family
no chest pain or SOB
had a BM
Objective Data
-
Labs:
Laboratory Results
08/08/24
07:39
WBC 11.6 H
Hgb 12.0 L
Hct 33.8 L
Plt Count 115 L
Sodium 145
Potassium 3.0 L
Chloride 105
Carbon Dioxide 30
BUN 32 H
Creatinine 1.1
Glucose 93
Calcium 11.6 H
Vital Signs:
Vital Signs
Temp Pulse Resp BP Pulse Ox
97.7 F 77 16 143/86 94
08/08/24 11:18 08/08/24 11:18 08/08/24 11:18 08/08/24 11:18 08/08/24 11:18
I&O
08/07/24 08/08/24 08/09/24
06:59 06:59 06:59
Intake Total 1640 / 1640 720 / 720
Output Total 2625 / 2625 1580 / 1580
Balance -985 / -985 -860 / -860
Review of Systems
-
History Source: Patient
All other systems: Reviewed and negative
Physical Exam
-
General: Well Developed and No Apparent Distress
HEENT: Normocephalic, Atraumatic and Moist Mucous Membranes
Respiratory: Clear to Auscultation
Cardiac: Regular Rhythm and S1/S2; Negative Murmur, Rub or Gallop
GI: Soft, Nontender, Nondistended and Normal Bowel Sounds; Negative Organomegaly
Rectal: Deferred by Provider
Musculoskeletal: No Clubbing, No Cyanosis and No Edema
Skin: Negative Rash
Neuro: Nonfocal/Grossly Intact
Psych: Calm
Data Reviewed
-
Diagnostic Radiology: Report Reviewed by me
Labs: Labs Reviewed by me
--- NOTE | 2024-08-08 11:50 | W.PN.ONC2 ---
Today's Communication / Plan
-
- calcium 11.6 today.
- SPEP, FLC, SRIRAM pending
- outpt PET/CT and hem/onc follow up
Impression
Impression
73-year-old male, with past medical history of CLL/SLL with increased lymphadenopathy.
Plan
Plan
1. h/o SLL/CLL - followed by Dr. Hinojosa
-lymphadenopathy at baseline on diagnosis - 2022 - now mildly increased on CT imaging this hospitalization however no focal areas of bulky disease. no evidence of new visceral malignancy on CT C/A/P.
-recommend repeat PET/CT imaging as outpt - prior PET in fall of 2022 w/ low level FDG uptake
-if f/u PET/CT demonstrates increased uptake - could consider repeat lymph node biopsy of that area to assess for transformation.
-CBC with tripling of ALC on admission however suspect element of dehydration. hgb, plts similar to prior and WBC/ALC downtrending.
2. PTH independent hypercalcemia/ ARF -
-nephrology following - unclear etiology - CLL/SLL? lymphoma transformation? paraproteinemia? less likely sarcoidosis, medication induced, infection related due to severity of hypercalcemia on presentation.
- Calcium 17.2 on admission. PTH, vitamin D low. SPEP, FLC, SRIRAM level pending.
-TLS panel not consistent with TLS with normal LDH, low phos, high calcium. suspect uric acid elevation unrelated to hematological process, metabolic syndrome in nature. No confirmed gout flares in past but symptoms he thought may have been.
regardless felt he would benefit from starting allopurinol to lower uric acid level in case tx for lymphoma indicated in future with high value already at baseline. started allopurinol 300 mg daily. please continue on discharge.
-received bisphosphonate/ IVF. calcium slowly downtrending. If continues to improve and remains </= 12 range ok for discharge from hematology standpoint with continued outpt monitoring.
Will continue to follow with you.
Subjective/Objective
Chief Complaint
hypercalcemia
Subjective
pt with no new complaints today. constipation resolved and feels fogginess improved today. He continues to have no taste. Denies fevers, chills.
Vital Signs:
Vital Signs
Temp Pulse Resp BP Pulse Ox
97.7 F 77 16 143/86 94
08/08/24 11:18 08/08/24 11:18 08/08/24 11:18 08/08/24 11:18 08/08/24 11:18
Lab Results:
Laboratory Data
WBC 11.6 10^3/uL (4.8-10.8) H 08/08/24 07:39
Hgb 12.0 g/dL (13.0-18.0) L 08/08/24 07:39
Plt Count 115 10^3/uL (130-400) L 08/08/24 07:39
eGFR > 60.00 08/08/24 07:39
Physical Exam
HEENT: No Jaundice
Cardiology: Normal Sinus Rhythm
Pulmonary: Clear
GI: Soft
Extremities: No Edema
Neuro: Non Focal
Review of Systems
Review of Systems
Constitutional: Reports Fatigue; Denies Fever
Respiratory: Denies Dyspnea
Cardiovascular: Denies Chest Pain
Gastrointestinal: Denies Nausea/Vomiting
Genitourinary: Reports Other (urgency )
Skin: Denies Rash
Neurological: Denies Headache
Hem/Lymphatic: Reports Swollen Glands; Denies Night Sweats
Orders
Orders
Orders From Last 24 Hours
08/08/24 08:00
Allopurinol [Zyloprim] 300 mg PO DAILY
[2024-08-08] MEDS: KCL 40 MEQ PO (12:18)
--- NOTE | 2024-08-08 12:31 | W.PN.NEPH.PH ---
Today's Communication / Plan
-
Off IV fluid
Follow-up labs in a.m.
Should be stable from nephrology standpoint for discharge tomorrow
Assessment/Plan
-
Impression:
Back pain
Hypercalcemia (17.2)
Acute kidney 1.5
CLL\\SLL (progressive adenopathy by CT chest abdomen and pelvis)
History of right common femoral DVT
Hypertension
Mitral valve prolapse
BPH status post TURP
Coronary artery disease with history of CABG
Plan:
Hypercalcemia:
-Calcium down to 11.6
-Uric acid level elevated to 11.6
-Status post pamidronate provide
-IV fluids can be discontinued
-Obtain vitamin D levels, intact PTH SPEP LDH
-PTH was appropriately suppressed at 11.8
-Suspect hypercalcemia is a function of advancing malignancy
-Checked PTH RP
-Should be stable for discharge tomorrow
Acute kidney injury:
-Likely precipitated by prerenal stimulus due to profound hypercalcemia
-improving to 1.1 , grossly non oliguric at 2625cc
-Obtained urinalysis urine sodium and urine creatinine: UA bland
-IV fluids provided
-Bladder scans to ensure no obstructive component
-
-
Date of Service: August 08, 2024
CC / HPI / ROS
-
Chief Complaint:
ALIS
Hypercalcemia
History of Present Illness:
Blood pressure remains elevated
Serum calcium level down to 11.6
Creatinine down to 1.1
Review of Systems:
Nonoliguric
No chest pain or shortness of breath
Noted persistent low back pain
Labs
-
Labs:
WBC 11.6 10^3/uL (4.8-10.8) H 08/08/24 07:39
RBC 3.86 10^6/uL (4.70-6.10) L 08/08/24 07:39
Hgb 12.0 g/dL (13.0-18.0) L 08/08/24 07:39
Hct 33.8 % (39.0-52.0) L 08/08/24 07:39
Plt Count 115 10^3/uL (130-400) L 08/08/24 07:39
Sodium 145 mmol/L (135-145) 08/08/24 07:39
Potassium 3.0 mmol/L (3.5-5.1) L 08/08/24 07:39
Chloride 105 mmol/L (98-107) 08/08/24 07:39
Carbon Dioxide 30 mmol/L (22-30) 08/08/24 07:39
BUN 32 mg/dl (9-20) H 08/08/24 07:39
Creatinine 1.1 mg/dL (0.7-1.3) 08/08/24 07:39
eGFR > 60.00 08/08/24 07:39
Glucose 93 mg/dl (70-99) 08/08/24 07:39
Calcium 11.6 mg/dl (8.4-10.2) H 08/08/24 07:39
Phosphorus 2.2 mg/dl (2.5-4.5) L 08/07/24 06:26
Albumin 3.6 g/dl (3.5-5.0) 08/06/24 07:15
Physical Exam
-
Vital Signs:
Vital Signs
Temp Pulse Resp BP Pulse Ox
97.7 F 77 16 143/86 94
08/08/24 11:18 08/08/24 11:18 08/08/24 11:18 08/08/24 11:18 08/08/24 11:18
Cardiovascular:: Regular rate and rhythm
Respiratory:: Bilateral: CTA
Lung Excursion:: Normal
Abdomen:: Nontender and Soft
Bowel Sounds:: Normal
Extremity Edema:: None: Bilateral:
Perales Catheter: No
[2024-08-08] MEDS: TOPROL XL 100 MG PO (21:05)
--- NOTE | 2024-08-08 22:00 | PTCARENOTE ---
Pt transferred to [phone] [id number] , belongings sent with pt. Pt is [id number], call ybarra within reach.
[2024-08-09 00:20] LABS: IgA 81 mg/dl (70-400); IgG 859 mg/dl (700-1600); IgM 78 mg/dl (40-230)
[2024-08-09 03:33] VITALS: BP 169/92
[2024-08-09 05:04] LABS: Free Kappa Light Chains,Quant 18.31 mg/L (3.30-19.40); Free Lambda Light Chains,Quant 330.44 mg/L (5.71-26.30); Kappa/Lambda Fr Light Ratio 0.06 (0.26-1.65)
[2024-08-09 07:29] VITALS: BP 165/92
[2024-08-09] MEDS: NORVASC 2.5 MG PO (08:27)
[2024-08-09] MEDS: PROSCAR 5 MG PO (08:27)
[2024-08-09] MEDS: LIPITOR 80 MG PO (08:27)
[2024-08-09] MEDS: LOW STRENGTH ASPIRIN 81 MG PO (08:28)
[2024-08-09] MEDS: ELIQUIS 5 MG PO (08:28)
[2024-08-09] MEDS: ZYLOPRIM 300 MG PO (08:28)
--- NOTE | 2024-08-09 09:07 | W.PN.ONC2 ---
Documented by User: Leigh Kirkland DO, Resident 08/09/24 10:12
Today's Communication / Plan
-
recommendations of outpatient follow up with Dr. Hinojosa and PET/CT imaging for management of SLL/CLL.
hypercalcemia of unknown etiology- nephrology following. Ca at admission 17.2, now 10.7 on 08/09 s/p bisphosphonate/IVF. If remains <= 12, ok for DC from hematology standpoint
Recommendations for weekly Ca monitoring OP and potentially being set up for Xgeva or Zometa therapy for management of hyperCa
continue management per primary team
Impression
Impression
73-year-old male, with past medical history of CLL/SLL with increased lymphadenopathy.
Subjective/Objective
Chief Complaint
Oncology follow up
Subjective
Patient reports hes having some poor sleep due to noise. Otherwise feeling well.
Vital Signs:
Vital Signs
Temp Pulse Resp BP Pulse Ox
97.7 F 69 16 169/92 98
08/09/24 03:33 08/09/24 03:33 08/09/24 03:33 08/09/24 03:33 08/09/24 03:33
Lab Results:
Laboratory Data
WBC 11.6 10^3/uL (4.8-10.8) H 08/08/24 07:39
Hgb 12.0 g/dL (13.0-18.0) L 08/08/24 07:39
Plt Count 115 10^3/uL (130-400) L 08/08/24 07:39
eGFR > 60.00 08/08/24 07:39
Physical Exam
General: AAOx3, comfortable, conversant
Review of Systems
Review of Systems
Systems reviewed and negative unless otherwise noted

Documented by User: Holly Edwards MD 08/09/24 21:38
Today's Communication / Plan
-
recommendations of outpatient follow up with Dr. Hinojosa and PET/CT imaging for management of SLL/CLL.
hypercalcemia of unknown etiology- nephrology following. Ca at admission 17.2, now 10.7 on 08/09 s/p bisphosphonate/IVF. If remains <= 12, ok for DC from hematology standpoint
Recommendations for weekly Ca monitoring OP and potentially being set up for Xgeva or Zometa therapy for management of hyperCa
continue management per primary team
Pt seen, chart reviewed.
We will arrange weekly BMP and tentatively schedule Zometa for hypercalcemia.
Will order PET scan for outpt setting.
[2024-08-09 09:08] LABS: Blood Urea Nitrogen 28 mg/dl (9-20); Calcium 10.7 mg/dl (8.4-10.2); Carbon Dioxide 28 mmol/L (22-30); Chloride 105 mmol/L (98-107); Estimated Creatinine Clearance 62 ml/min; Glucose 87 mg/dl (70-99); Potassium 3.1 mmol/L (3.5-5.1); Sodium 144 mmol/L (135-145); eGFR > 60.00
--- NOTE | 2024-08-09 11:20 | PTCARENOTE ---
08/09- Patient has maculopapular rash with some moderate xerosis and crusting on his Left Lower Back. No open breaks in skin integrity or drainage; no erythema or banding. Patient is afebrile, denies any pain burning or pruritis. He reports having
had Varicella as a child and has no hx of Shingles Virus. Notified Physician, asking about Precautions to r/o Shingles. As per Physician, Contact Precautions D/[place]don. Patient may be on Standard Precautions again. Continue to Monitor.
[2024-08-09 11:41] VITALS: BP 144/92
--- NOTE | 2024-08-09 11:43 | CM ---
Chart reviewed and family preservation caseworker met with patient and family and plan is to home with [facility].
Plan; Home with [facility].
[2024-08-09] MEDS: KCL 40 MEQ PO (11:57)
--- NOTE | 2024-08-09 14:00 | W.PN.NEPH.PH ---
Today's Communication / Plan
-
ok for d/c
Assessment/Plan
-
Impression:
Back pain
Hypercalcemia (17.2)
Acute kidney 1.5
CLL\\SLL (progressive adenopathy by CT chest abdomen and pelvis)
History of right common femoral DVT
Hypertension
Mitral valve prolapse
BPH status post TURP
Coronary artery disease with history of CABG
Plan:
Hypercalcemia:
-Calcium down to 10.7, off IVF
-Uric acid level elevated to 11.6 on admit
-Status post pamidronate on 08/05
vitamin D levels are slightly low, if geoff stable can take OTC vit D3
intact PTH is low as expected, pending PTHrP. pending SPEP
-Suspect hypercalcemia is a function of advancing malignancy
replace k
Acute kidney injury:
-Likely precipitated by prerenal stimulus due to profound hypercalcemia
-improving to 1.1 and stable
-Obtained urinalysis urine sodium and urine creatinine: UA bland
BP are slightly up-ok to resume Diovan
ok for d/c today
f/u with heme , weekly bmp noted
d/w pt and family
-
-
Date of Service: August 09, 2024
CC / HPI / ROS
-
Chief Complaint:
ALIS
Hypercalcemia
History of Present Illness:
Blood pressure remains elevated
Serum calcium level down to 10.7
Creatinine stable at 1.1
k low at 3.1
Review of Systems:
Nonoliguric
No chest pain or shortness of breath
Noted persistent low back pain-unchanged
Labs
-
Labs:
WBC 11.6 10^3/uL (4.8-10.8) H 08/08/24 07:39
RBC 3.86 10^6/uL (4.70-6.10) L 08/08/24 07:39
Hgb 12.0 g/dL (13.0-18.0) L 08/08/24 07:39
Hct 33.8 % (39.0-52.0) L 08/08/24 07:39
Plt Count 115 10^3/uL (130-400) L 08/08/24 07:39
Sodium 144 mmol/L (135-145) 08/09/24 07:08
Potassium 3.1 mmol/L (3.5-5.1) L 08/09/24 07:08
Chloride 105 mmol/L (98-107) 08/09/24 07:08
Carbon Dioxide 28 mmol/L (22-30) 08/09/24 07:08
BUN 28 mg/dl (9-20) H 08/09/24 07:08
Creatinine 1.1 mg/dL (0.7-1.3) 08/09/24 07:08
eGFR > 60.00 08/09/24 07:08
Glucose 87 mg/dl (70-99) 08/09/24 07:08
Calcium 10.7 mg/dl (8.4-10.2) H 08/09/24 07:08
Phosphorus 2.2 mg/dl (2.5-4.5) L 08/07/24 06:26
Albumin 3.6 g/dl (3.5-5.0) 08/06/24 07:15
Physical Exam
-
Vital Signs:
Vital Signs
Temp Pulse Resp BP Pulse Ox
98.4 F 78 20 144/92 99
08/09/24 11:41 08/09/24 11:41 08/09/24 11:41 08/09/24 11:41 08/09/24 11:41
Cardiovascular:: Regular rate and rhythm
Respiratory:: Bilateral: CTA
Lung Excursion:: Normal
Abdomen:: Nontender
Extremity Edema:: None: Bilateral:
Perales Catheter: No
--- NOTE | 2024-08-09 14:00 | VNURNOTE ---
Home Health Liaison met with patient, daughter, and Carolina at bedside to discuss [facility] nurse/therapy, visits, schedule and homebound status. All are agreeable and understand that visits at home will be 2-3 x per week to assess and teach
medical management.
[facility] brochure provided with contact information. Patient is aware that [facility] will contact them for start of care in 1-2 days after discharge from .
[facility] referral accepted in [facility].
[2024-08-09 21:47] LABS: Angiotensin-1-converting Enzym 30 U/L (16-85)
--- NOTE | 2024-08-10 08:38 | W.DS.TRANS ---
DC Summary - Institutional Aide
-
Discharge Instructions:
Discharge Diagnosis/Procedures Hypercalcemia.
Acute kidney injury
Diet Regular
Blood Work BMP, Ca level weekly
Instructions:
Stand-Alone Forms:
Changes to Home Medications: Yes
Discharge Medications:
DC Medications w/original date entered in [facility]
finasteride 5 mg tablet (Proscar) 5 mg PO DAILY Urinary Issue 01/28/11
nicotine (polacrilex) 2 mg gum 2 mg PO .25-30X DAILY PRN smoking cessation 01/28/11
amlodipine 2.5 mg tablet 2.5 mg PO DAILY Blood Pressure 07/10/23
atorvastatin 80 mg tablet 80 mg PO DAILY High Cholesterol 07/10/23
diazepam 5 mg tablet (Valium) 5 mg PO BIDPRN PRN anxiety 07/10/23
metoprolol succinate 100 mg tablet,extended release 24 hr (Toprol XL) 100 mg PO HS Heart Disease/Condition 07/10/23
valsartan 320 mg tablet (Diovan) 320 mg PO DAILY Blood Pressure 07/10/23
apixaban 5 mg tablet (Eliquis) 5 mg PO BID Blood Clot Prevention/Tx 09/02/23
acetaminophen 500 mg tablet (Tylenol Extra Strength) 1,000 mg PO Q8HPRN PRN mild pain 08/05/24
aspirin 81 mg chewable tablet 81 mg PO DAILY Blood Clot Prevention/Tx 08/05/24
allopurinol 300 mg tablet 300 mg PO DAILY #30 tabs 08/09/24
Home Medication Changes
Allopurinol added
Pending Results: No
[2024-08-10 09:03] LABS: IgA 87 mg/dL (68-408); IgG 854 mg/dL (768-1632); IgM 93 mg/dL (35-263)
[2024-08-10 10:06] LABS: Albumin 3.43 g/dL (3.75-5.01); Alpha 1 Globulin 0.33 g/dL (0.19-0.46); Alpha 2 Globulin 0.77 g/dL (0.48-1.05); SPEP IFE Reflex IFE Done; Total Protein-Electrophoresis 5.9 g/dL (6.3-8.2)
--- NOTE | 2024-08-11 10:35 | PN.CDI ---
CDI
- -
CDI:
Physician Documentation Request
Admit Date: 08/05/24 21:44
Dear Doctor Tamanna,
Clinical Indicators:
The diagnosis of Toxic metabolic encephalopathy was documented on 08/09 in discharge summary, but is not consistently noted in previous documentation.
Discharge summary states 'his is a 73-year-old gentleman who presents to [facility] with altered mental status where patient was found to have significant hypercalcemia'
08/05 ED record states '73-year-old male who presents with generalized weakness and pains' Exam at that time 'patient is alert and oriented to person, place and time. Well appearing'
Nursing assessment 'alert , appropriate, cooperative. Cognitive needs: none, communication needs: none. Activities of daily living: Independent'
H&P neuro assessment 'nonfocal/grossly intact'
Please clarify the following:
____ - Toxic metabolic encephalopathy was present on admission
____ - Toxic metabolic encephalopathy was ruled out
____ - Other
Use of terms such as suspected, likely, concern for, or probable (associated with a specific diagnosis that is being evaluated, monitored, or treated as if it exists) are acceptable and can be coded in the inpatient setting, when documented at the
time of discharge.
Thank you,
Iram Villa RN, BSN
CDI Specialist
tiger text
Please use your independent medical judgment in providing your response.
[2024-08-12 13:41] LABS: PTH Related Peptide LC-MS/MS 8.6 pmol/L (0.0-2.3)
== END 2024-08-09 14:51 | disposition home health service (06) | DRG 640 ==
LOC: 4 WEST ACU 21:44
PROVIDERS: Emergency Medicine; Internal Medicine Hematology & Oncology; Student in an Organized Health Care Education/Training Program; ADMITTING PHYSICIAN Hospitalist; ATTENDING PHYSICIAN Internal Medicine; CONSULT PHYSICIAN Internal Medicine Hematology & Oncology; EMERGENCY PHYSICIAN Emergency Medicine; FAMILY PHYSICIAN Family Medicine; OTHER PHYSICIAN Specialist
DX: E83.52 Hypercalcemia (principal); G92.8 Other toxic encephalopathy; N17.9 Acute kidney failure, unspecified; C91.10 Chronic lymphocytic leukemia of B-cell type not having achieved remission; D68.51 Activated protein C resistance; I10 Essential (primary) hypertension; I08.0 Rheumatic disorders of both mitral and aortic valves; R63.4 Abnormal weight loss; E78.00 Pure hypercholesterolemia, unspecified; E87.6 Hypokalemia; F17.200 Nicotine dependence, unspecified, uncomplicated; F41.9 Anxiety disorder, unspecified; N40.1 Benign prostatic hyperplasia with lower urinary tract symptoms; R32 Unspecified urinary incontinence; R39.15 Urgency of urination; I25.10 Atherosclerotic heart disease of native coronary artery without angina pectoris; Z95.1 Presence of aortocoronary bypass graft; K59.09 Other constipation; M54.50 Low back pain, unspecified; X50.0XXA Overexertion from strenuous movement or load, initial encounter; M48.061 Spinal stenosis, lumbar region without neurogenic claudication; M19.90 Unspecified osteoarthritis, unspecified site; M54.2 Cervicalgia; Z68.28 Body mass index [BMI] 28.0-28.9, adult; Z79.01 Long term (current) use of anticoagulants; Z79.82 Long term (current) use of aspirin; Z79.899 Other long term (current) drug therapy; Z86.19 Personal history of other infectious and parasitic diseases; Z86.718 Personal history of other venous thrombosis and embolism; Z90.79 Acquired absence of other genital organ(s); Z88.8 Allergy status to other drugs, medicaments and biological substances
CPT/HCPCS: 71250; 72158; 74176; 80048; 80053; 81003; 82164; 82306; 82330; 82570; 82784; 82962; 83519; 83521; 83615; 83970; 84100; 84155; 84156; 84165; 84300; 84550; 85025; 85027; 86334; 93005; 96361; 96374; 96375; 97161; 97166; 97530; 99291; J2430

== ENCOUNTER → 2024-08-19 13:15 | Outpatient (REF) | payer BC, SELFPAY | LOC: PET 13:15 | PROVIDERS: ATTENDING PHYSICIAN Internal Medicine Hematology & Oncology | DX: C83.03 Small cell B-cell lymphoma, intra-abdominal lymph nodes (principal) | CPT/HCPCS: 78815; A9552 ==

== ENCOUNTER → 2025-01-13 11:07 | Outpatient (REF) | payer BC, SELFPAY | LOC: HWRCS 11:07 | PROVIDERS: ATTENDING PHYSICIAN Internal Medicine Cardiovascular Disease; FAMILY PHYSICIAN Family Medicine | DX: R10.31 Right lower quadrant pain (principal); I10 Essential (primary) hypertension | CPT/HCPCS: 93306 ==

== ENCOUNTER → 2025-07-07 11:19 | Outpatient (REF) | payer MEDICARE, OTHER, SELFPAY | LOC: RAD 11:19 | PROVIDERS: ATTENDING PHYSICIAN Internal Medicine Cardiovascular Disease; FAMILY PHYSICIAN Family Medicine; OTHER PHYSICIAN Internal Medicine Hematology & Oncology; REFERRING PHYSICIAN Internal Medicine Cardiovascular Disease | DX: R10.31 Right lower quadrant pain (principal); I77.9 Disorder of arteries and arterioles, unspecified; I25.10 Atherosclerotic heart disease of native coronary artery without angina pectoris; I35.0 Nonrheumatic aortic (valve) stenosis | CPT/HCPCS: 93880 ==